=== PATIENT | female | born 1970 | race Two or more races ===

== ENCOUNTER 2019-02-12 23:45 | Emergency (ER) | payer OTHER ==
[2019-02-13 01:07] LABS: ABSOLUTE BASOPHILS # (AUTO) 0.1 10^3/uL (0.0-0.2); ABSOLUTE EOSINOPHILS # (AUTO) 0.4 10^3/uL (0.0-0.6); ABSOLUTE LYMPHOCYTES (AUTO) 1.8 10^3/uL (0.5-4.7); ABSOLUTE MONOCYTES (AUTO) 0.7 10^3/uL (0.1-1.4); ABSOLUTE NEUT (AUTO) 5.1 10^3/uL (1.7-8.2); EOSINOPHILS % (AUTO) 4.4 % (0-6); HEMOGLOBIN 12.1 g/dL (12.0-15.5); LYMPHOCYTES % (AUTO) 22.5 % (13-45); MEAN CORPUSCULAR HEMOGLOBIN 30.2 pg (27.0-33.4); MEAN CORPUSCULAR HGB CONC 33.7 g/dL (32.0-36.0); MEAN CORPUSCULAR VOLUME 90 fl (80-97); PLATELET COUNT 311 10^3/uL (150-450); RED BLOOD COUNT 4.02 10^6/uL (3.72-5.28); RED CELL DISTRIBUTION WIDTH 14.2 % (11.5-14.0); SEGMENTED NEUTROPHILS % (AUTO) 63.1 % (42-78); TOTAL CELLS COUNTED % (AUTO) 100 %; WHITE BLOOD COUNT 8.1 10^3/uL (4.0-10.5)
[2019-02-13 01:26] LABS: ALANINE AMINOTRANSFERASE 59 U/L (9-52); ALBUMIN 3.9 g/dL (3.5-5.0); ALKALINE PHOSPHATASE 101 U/L (38-126); ANION GAP 9 (5-19); ASPARTATE AMINO TRANSFERASE 51 U/L (14-36); BILIRUBIN,DIRECT 0.2 mg/dL (0.0-0.4); BILIRUBIN,TOTAL 0.2 mg/dL (0.2-1.3); BLOOD UREA NITROGEN 18 mg/dL (7-20); CALCIUM 9.7 mg/dL (8.4-10.2); CARBON DIOXIDE 29 mmol/L (22-30); CHLORIDE 103 mmol/L (98-107); GLUCOSE 97 mg/dL (75-110); LIPASE 110.5 U/L (23-300); POTASSIUM 3.7 mmol/L (3.6-5.0); SODIUM 140.6 mmol/L (137-145)
[2019-02-13] MEDS ORDERED: ONDANSETRON 4 MG TAB.RAPDIS PO ONE (01:52)
[2019-02-13] MEDS ORDERED: OXYCODONE-ACETAMINOPHEN 5-325 MG TABLET PO ONE (01:52)
--- NOTE | 2019-02-13 01:53 | ER Document Report ---
ED GI/ - General Chief Complaint: Flank Pain Stated Complaint: RIGHT SIDE PAIN/FEVER Time Seen by Provider: 02/13/19 01:23 Notes: Patient is a 48-year-old female that comes to the emergency department for chief complaint of flank pain on both sides, bilateral intermittent lower abdominal pain, frequency and pain with urination, and today she felt like she was running a fever and having chills. She reports some nausea but denies vomiting. She states earlier she had a mild headache. She denies upper abdominal pain, vomiting, history of kidney stones, history of abdominal surgeries. She denies any daily medications, she states she has been taking Azo. She is Maltese- speaking, has daughter at bedside. TRAVEL OUTSIDE OF THE [place] IN LAST 30 DAYS: No Past Medical History - General Information source: Patient - Social History Smoking Status: Never Smoker Frequency of alcohol use: None Drug Abuse: None Lives with: Family Family History: Reviewed & Not Pertinent - Medical History Medical History: Negative Surgical Hx: Negative - Immunizations Immunizations up to date: Yes Hx Diphtheria, Pertussis, Tetanus Vaccination: Yes Review of Systems - Review of Systems Constitutional: No symptoms reported EENT: No symptoms reported Cardiovascular: No symptoms reported Respiratory: No symptoms reported Gastrointestinal: See HPI Genitourinary: See HPI Female Genitourinary: No symptoms reported Musculoskeletal: No symptoms reported Skin: No symptoms reported Hematologic/Lymphatic: No symptoms reported Neurological/Psychological: No symptoms reported Physical Exam - Vital signs Vitals: Temp Pulse Resp BP Pulse Ox 98.2 F 72 19 120/78 96 02/13/19 00:26 02/13/19 00:26 02/13/19 00:26 02/13/19 00:02/13/19 00:26 - Notes Notes: GENERAL: Alert, interacts well. No acute distress. HEAD: Normocephalic, atraumatic. EYES: Pupils equal, round, and reactive to light. Extraocular movements intact. ENT: Oral mucosa moist, tongue midline. Oropharynx unremarkable. Airway patent. Nares patent, no nasal septal hematoma, TM's intact. NECK: Full range of motion. Supple. Trachea midline. LUNGS: Clear to auscultation bilaterally, no wheezes, rales, or rhonchi. No respiratory distress. HEART: Regular rate and rhythm. No murmur ABDOMEN: Minimal suprapubic tenderness, otherwise unremarkable. No guarding or rebound tenderness. Non-distended. Bowel sounds present in all 4 quadrants. GENITOURINARY: Deferred EXTREMITIES: Moves all 4 extremities spontaneously. No edema, normal radial and dorsalis pedis pulses bilaterally. No cyanosis. BACK: no cervical, thoracic, lumbar midline tenderness. No saddle anesthesia, normal distal neurovascular exam. Mild bilateral CVA tenderness, equal. NEUROLOGICAL: Alert and oriented x3. Normal speech. . PSYCH: Normal affect, normal mood. SKIN: Warm, dry, normal turgor. No rashes or lesions noted. Course - Re-evaluation Re-evalutation: Patient is very well-appearing. She does have some CVA tenderness bilaterally but she does not appear to be in distress. Vital signs are unremarkable. No fever. Abdomen is soft and benign except for minimal suprapubic tenderness. Chemistry unremarkable. CBC unremarkable. Urinalysis does show infection. Culture placed. Discussed with patient again, discussed work-up, treatment opti ons. I do have a low suspicion of ureterolithiasis with infection because patient has had slowly progressive bilateral flank pain, she does not have any severe pain, vomiting, or fever. After discussion decision was made to treat patient with IM Rocephin here, antibiotic's at home, symptom management at home, and return precautions which were discussed in detail. Patient states satisfaction agreement. Evaluation in conversation with patient performed using Martti valuer. - Vital Signs Vital signs: Temp Pulse Resp BP Pulse Ox 98.1 F 71 15 109/69 95 02/13/19 06:09 02/13/19 06:09 02/13/19 06:09 02/13/19 06:09 02/13/19 06:09 - Laboratory Result Diagrams: 02/13/19 01:00 02/13/19 01:00 Laboratory results interpreted by me: 02/13/19 02/13/19 02/13/19 01:00 01:00 03:20 RDW 14.2 H AST 51 H ALT 59 H Urine Blood MODERATE H Ur Leukocyte Esterase MODERATE H Discharge - Discharge Clinical Impression: Flank pain, Dysuria Urinary tract infection Qualifiers: Urinary tract infection type: site unspecified Hematuria presence: without hematuria Qualified Code(s): N39.0 - Urinary tract infection, site not specified Condition: Stable Disposition: HOME, SELF-CARE Additional Instructions: Thomas examen muestra ayden infeccion renal. Learned el antibiotico hasta que se haya neto. Learned el medicamento para el dolor (percocet) y el medicamento para las nauseas (zofran) si es necesario. Vuelve si estas peor: fiebre, vomitos, peor dolor, etc. Prescriptions: Cephalexin Monohydrate [Keflex 500 mg Capsule] 500 mg PO QID #28 capsule Ondansetron [Zofran Odt 4 mg Tablet] 1 - 2 tab PO Q4H PRN #15 tab.rapdis PRN Reason: For Nausea/Vomiting Oxycodone HCl/Acetaminophen [Percocet 5-325 mg Tablet] 1 - 2 tab PO Q4H PRN #12 tablet PRN Reason: Forms: Return to Work
[2019-02-13 04:56] LABS: APPEARANCE,URINE SLIGHTLY-CLOUDY; BILIRUBIN,URINE NEGATIVE (NEGATIVE); COLOR,URINE STRAW; GLUCOSE, URINE NEGATIVE (NEGATIVE); KETONES,URINE NEGATIVE (NEGATIVE); LEUKOCYTE ESTERASE,URINE MODERATE (NEGATIVE); NITRITE,URINE NEGATIVE (NEGATIVE); PROTEIN,URINE NEGATIVE (NEGATIVE); URINE SPECIFIC GRAVITY 1.009; UROBILINOGEN,URINE NEGATIVE mg/dL (<2.0)
[2019-02-13] MEDS ORDERED: LIDOCAINE 1% INJ-PF (10 MG/ML) 30 ML SDV INJ ONE (05:39)
[2019-02-13] MEDS ORDERED: CEFTRIAXONE INJ 1000 MG VIAL IM ONE (05:39)
[2019-02-13 06:15] VITALS: BP 109/69
== END 2019-02-13 06:18 | disposition home or self-care (01) ==
LOC: ER 23:45
DX: N39.0 Urinary tract infection, site not specified (principal); R11.0 Nausea; R51 Headache
CPT/HCPCS: 99284; 96372; 36415; 87086; 83690; 85025; 87088; 80053; 81001; 87186; S0119; J3490; J0696

== ENCOUNTER 2019-02-15 21:57 | Emergency (ER) | payer OTHER ==
[2019-02-15 23:44] LABS: APPEARANCE,URINE CLEAR; BILIRUBIN,URINE NEGATIVE (NEGATIVE); COLOR,URINE COLORLESS; GLUCOSE, URINE NEGATIVE (NEGATIVE); KETONES,URINE NEGATIVE (NEGATIVE); LEUKOCYTE ESTERASE,URINE NEGATIVE (NEGATIVE); NITRITE,URINE NEGATIVE (NEGATIVE); PROTEIN,URINE NEGATIVE (NEGATIVE); URINE SPECIFIC GRAVITY 1.001; UROBILINOGEN,URINE NEGATIVE mg/dL (<2.0)
--- NOTE | 2019-02-16 00:32 | ER Document Report ---
ED Medical Screen (RME) - General Chief Complaint: Flank Pain Stated Complaint: LOWER BACK PAIN Time Seen by Provider: 02/16/19 00:22 Mode of Arrival: Ambulatory Information source: Patient, Friend Notes: Patient is a 48-year-old female comes back to the emergency room after being seen on the ninth of this month for similar presentation of bilateral flank pain with radiation down to the suprapubic area. Patient has been placed on cephalexin for UTI and states she is been taking a regular basis but is not getting any better states a matter fact she is getting worse. We are doing this for interpretation of her friend that is with her. But there is still some lacking communication problems. Patient states she has had surgeries in the belly but she is not sure what 1 of the more. She also states that her last menstrual period was in 2012 but she is never had any menopausal symptoms. Patient also denies having any other medical problems and does not smoke drink or do drugs. TRAVEL OUTSIDE OF THE [place] IN LAST 30 DAYS: No Past Medical History - General Information source: Patient, Friend - Social History Chew tobacco use (# tins/day): No Frequency of alcohol use: None Drug Abuse: None Lives with: Family Family history: Reviewed & Not Pertinent Renal/ Medical History: Denies: Hx Peritoneal Dialysis - Immunizations Immunizations up to date: Yes Hx Diphtheria, Pertussis, Tetanus Vaccination: Yes Review of Systems - Review of Systems Constitutional: No symptoms reported EENT: No symptoms reported Cardiovascular: No symptoms reported Respiratory: No symptoms reported Gastrointestinal: See HPI, Abdominal pain Genitourinary: No symptoms reported Female Genitourinary: No symptoms reported Musculoskeletal: See HPI, Back pain Skin: No symptoms reported Hematologic/Lymphatic: No symptoms reported Neurological/Psychological: No symptoms reported Physical Exam - Vital signs Vitals: Temp Pulse Resp BP Pulse Ox 97.9 F 73 20 133/96 H 99 02/15/19 22:03 02/15/19 22:03 02/15/19 22:03 02/15/19 22:03 02/15/19 22:03 Interpretation: Hypertensive - Notes Notes: PHYSICAL EXAMINATION: GENERAL: Patient is a well-nourished well-developed 48-year-old female who is in no apparent distress on physical exam tonight but who appears to be somewhat moderate amount of discomfort and pain.. NECK: Normal range of motion, supple without lymphadenopathy LUNGS: Breath sounds clear to auscultation bilaterally and equal. No wheezes rales or rhonchi. HEART: Regular rate and rhythm without murmurs ABDOMEN: Examination patient's abdomen shows she has bowel sounds in all 4 quads. She is tender in the suprapubic area to palpation. She also has moderate tenderness to percussion on bilateral flanks. Female : deferred Musculoskeletal: Normal range of motion, no pitting or edema. No cyanosis. NEUROLOGICAL: Normal speech, normal gait. Normal sensory, motor exams PSYCH: Normal mood, normal affect. SKIN: Warm, Dry, normal turgor, no rashes or lesions noted. Course - Re-evaluation Re-evalutation: 02/16/19 00:31 I have greeted and performed a rapid initial assessment of this patient. A comprehensive ED assessment and evaluation of the patient, analysis of test results and completion of the medical decision making process will be conducted by additional ED providers. Dictation of this chart was performed using voice recognition software; therefore, there may be some unintended grammatical errors. - Vital Signs Vital signs: Temp Pulse Resp BP Pulse Ox 97.9 F 73 20 133/96 H 99 02/15/19 22:03 02/15/19 22:03 02/15/19 22:03 02/15/19 22:03 02/15/19 22:03 - Laboratory Laboratory results interpreted by me: 02/15/19 22:50 Urine Blood SMALL H
[2019-02-16 00:49] LABS: ABSOLUTE BASOPHILS # (AUTO) 0.1 10^3/uL (0.0-0.2); ABSOLUTE EOSINOPHILS # (AUTO) 0.2 10^3/uL (0.0-0.6); ABSOLUTE LYMPHOCYTES (AUTO) 1.7 10^3/uL (0.5-4.7); ABSOLUTE MONOCYTES (AUTO) 0.7 10^3/uL (0.1-1.4); ABSOLUTE NEUT (AUTO) 7.6 10^3/uL (1.7-8.2); EOSINOPHILS % (AUTO) 2.4 % (0-6); HEMATOCRIT 41.3 % (36.0-47.0); HEMOGLOBIN 13.9 g/dL (12.0-15.5); LYMPHOCYTES % (AUTO) 16.4 % (13-45); MEAN CORPUSCULAR HEMOGLOBIN 30.1 pg (27.0-33.4); MEAN CORPUSCULAR HGB CONC 33.7 g/dL (32.0-36.0); MEAN CORPUSCULAR VOLUME 89 fl (80-97); MONOCYTES % (AUTO) 6.4 % (3-13); PLATELET COUNT 436 10^3/uL (150-450); RED BLOOD COUNT 4.62 10^6/uL (3.72-5.28); RED CELL DISTRIBUTION WIDTH 14.1 % (11.5-14.0); SEGMENTED NEUTROPHILS % (AUTO) 73.8 % (42-78); TOTAL CELLS COUNTED % (AUTO) 100 %; WHITE BLOOD COUNT 10.3 10^3/uL (4.0-10.5)
[2019-02-16 01:07] LABS: ALANINE AMINOTRANSFERASE 126 U/L (9-52); ALBUMIN 4.4 g/dL (3.5-5.0); ALKALINE PHOSPHATASE 179 U/L (38-126); ANION GAP 11 (5-19); ASPARTATE AMINO TRANSFERASE 94 U/L (14-36); BILIRUBIN,DIRECT 0.2 mg/dL (0.0-0.4); BILIRUBIN,TOTAL 0.3 mg/dL (0.2-1.3); BLOOD UREA NITROGEN 18 mg/dL (7-20); CALCIUM 9.9 mg/dL (8.4-10.2); CARBON DIOXIDE 27 mmol/L (22-30); CHLORIDE 104 mmol/L (98-107); GLUCOSE 100 mg/dL (75-110); TOTAL PROTEIN 8.1 g/dL (6.3-8.2)
--- NOTE | 2019-02-16 01:19 | RADIOLOGY REPORT (SQ) ---
EXAM DESCRIPTION: CT ABDOMEN PELVIS WITHOUT IV CONTRAST COMPLETED DATE/TME: 02/16/2019 00:28 CLINICAL HISTORY: 48 years, Female, Stone study COMPARISON: None. TECHNIQUE: Axial CT images of the abdomen and pelvis were obtained without contrast. Sagittal and coronal reformats were performed. DLP 344 Images stored on PACS. All CT scanners at this facility use dose modulation, iterative reconstruction, and/or weight based dosing when appropriate to reduce radiation dose to as low as reasonably achievable (ALARA). [facility]: Dose Right [facility]: CareDose [facility]: Dose Right [facility]: Teradose 4D [facility]: Smart [facility] LIMITATIONS: None. FINDINGS: Lung bases are clear. There is a 2.7 x 2.0 cm cyst within the left hepatic lobe. The gallbladder is not uniquely identified and may be surgically absent. The pancreas, spleen, and adrenal glands are unremarkable. There is no evidence of urolithiasis or hydronephrosis bilaterally. There is no intraperitoneal free air or fluid. There is no lymphadenopathy. The stomach appears unremarkable. There is mild distention of the fluid-filled small bowel. The appendix is normal. Fluid is noted within the colon. The uterus, adnexa, and urinary bladder are unremarkable. There are no lytic or blastic bone lesions. IMPRESSION: Mild distention of the fluid-filled small bowel and colon, likely related to an enterocolitis or diarrhea. No evidence of urolithiasis or hydronephrosis. TECHNICAL DOCUMENTATION: Quality ID # [id number]: Final reports with documentation of one or more dose reduction techniques (e.g., Automated exposure control, adjustment of the mA and/or kV according to patient size, use of iterative reconstruction technique) copyright 2011 [employer]- All Rights Reserved
[2019-02-16] MEDS ORDERED: KETOROLAC TROMETHAMINE 60 MG/2 ML SDV IM ONE (02:25)
[2019-02-16] MEDS ORDERED: DICYCLOMINE HCL INJ 20 MG/2 ML AMPULE IM ONE (02:26)
--- NOTE | 2019-02-16 02:40 | ER Document Report ---
ED General - General Chief Complaint: Flank Pain Stated Complaint: LOWER BACK PAIN Time Seen by Provider: 02/16/19 00:22 Mode of Arrival: Ambulatory Notes: Patient is a 48-year-old female without chronic medical problems, prior surgical history of a cholecystectomy and laparoscopy who presents complaining of ongoing lower abdominal discomfort and bilateral low back pain. Patient was seen in the emergency department 3 days ago, had bilateral flank tenderness at that time and was diagnosed with pyelonephritis. States that since taking antibiotics she has gotten worse not better although is no longer complaining of any dysuria. She describes the pain as being a throbbing, cramping, severe pain to her lower abd omen radiating into her low back. Nothing seems to improve or worsen her symptoms. She denies any history of similar symptoms in the past. She has not seen her primary care physician regarding today's concerns. She has had nausea but no vomiting and has had diarrhea. No fever. The history and physical exam was obtained by the provider using [employer] Sorbian. A formal hospital flocculator operator was offered to the patient and any family at the bedside at the beginning of the encounter and was declined. TRAVEL OUTSIDE OF THE [place] IN LAST 30 DAYS: No Past Medical History - General Information source: Patient, Friend - Social History Smoking Status: Never Smoker Chew tobacco use (# tins/day): No Frequency of alcohol use: None Drug Abuse: None Lives with: Family Family History: Reviewed & Not Pertinent Patient has suicidal ideation: No Patient has homicidal ideation: No Renal/ Medical History: Denies: Hx Peritoneal Dialysis - Immunizations Immunizations up to date: Yes Hx Diphtheria, Pertussis, Tetanus Vaccination: Yes Review of Systems - Review of Systems Notes: Constitutional: Negative for fever. HENT: Negative for sore throat. Eyes: Negative for visual changes. Cardiovascular: Negative for chest pain. Respiratory: Negative for shortness of breath. Gastrointestinal: Positive for lower abdominal pain, nausea and diarrhea Genitourinary: Negative for dysuria. Musculoskeletal: Negative for back pain. Skin: Negative for rash. Neurological: Negative for headaches, weakness or numbness. 10 point ROS negative except as marked above and in HPI. Physical Exam - Vital signs Vitals: Temp Pulse Resp BP Pulse Ox 97.9 F 73 20 133/96 H 99 02/15/19 22:03 02/15/19 22:03 02/15/19 22:03 02/15/19 22:03 02/15/19 22:03 Interpretation: Normal Notes: PHYSICAL EXAMINATION: GENERAL: Well-appearing, well-nourished and in no acute distress. HEAD: Atraumatic, normocephalic. EYES: Pupils equal round and reactive to light, extraocular movements intact, sclera anicteric, conjunctiva are normal. ENT: nares patent, oropharynx clear without exudates. Moist mucous membranes. NECK: Normal range of motion, supple without lymphadenopathy LUNGS: Breath sounds clear to auscultation bilaterally and equal. No wheezes rales or rhonchi. HEART: Regular rate and rhythm without murmurs ABDOMEN: Soft, nontender, normoactive bowel sounds. No guarding, no rebound. No masses appreciated. EXTREMITIES: Normal range of motion, no pitting or edema. No cyanosis. NEUROLOGICAL: No focal neurological deficits. Moves all extremities spontaneously and on command. PSYCH: Normal mood, normal affect. SKIN: Warm, Dry, normal turgor, no rashes or lesions noted. Course - Re-evaluation Re-evalutation: 02/16/19 04:02 Patient presents with lower abdominal discomfort and low back pain by history although on exam has no significant abdominal tenderness at all on palpation. No flank tenderness. In triage labs were ordered which are broadly unremarkable. A CT scan of the abdomen pelvis seems to show some inflammation of the colon with some intestinal distention. This appears to be most consistent with an enteritis or colitis secondary to either viral infection, bacterial etiology or possibly secondary to the recent usage of antibiotics. The patient's urinalysis today does show that she has had complete resolution of the previous infection and I have advised her to discontinue the antibiotics at this time given that this could be contributing to her abdominal cramping, diarrhea and inflammation of the colon. At this point I would withhold further antibiotics as patient has not been having pronounced diarrhea, fever or tor tochezia. Bacterial colitis seems less likely given the absence of pronounced diarrhea and the above symptoms. I have started the patient on Levsin, have provided Bentyl here in the emergency department with improvement of the patient's discomfort. At this time will discharge with return precautions and follow-up recommendations. Verbal discharge instructions given a the bedside and opportunity for questions given. Medication warnings reviewed. Patient is in agreement with this plan and has verbalized understanding of return precautions and the need for primary care follow-up in the next 24-72 hours. 02/16/19 04:03 - Vital Signs Vital signs: Temp Pulse Resp BP Pulse Ox 97.3 F 64 16 121/67 98 02/16/19 02:57 02/16/19 02:57 02/16/19 02:57 02/16/19 02:57 02/16/19 02:57 - Laboratory Result Diagrams: 02/16/19 00:40 02/16/19 00:40 Laboratory results interpreted by me: 02/15/19 02/16/19 02/16/19 22:50 00:40 00:40 RDW 14.1 H AST 94 H ALT 126 H Alkaline Phosphatase 179 H Urine Blood SMALL H Discharge - Discharge Clinical Impression: Lower abdominal pain, Enteritis Condition: Good Disposition: HOME, SELF-CARE Additional Instructions: Your CT scan seems to suggest inflammation of your intestines either due to a viral illness for due to the antibiotics. Your urinalysis today does not suggest any ongoing infection and I do asked that you stop the cephalexin that you are currently taking. Take the Levsin that is been prescribed as needed for abdominal cramping and pain. Continue to drink plenty of fluids. Return to the emergency department immediately if you have fever of greater than 101 F, persistent vomiting, worsening of your pain, or any other symptoms that are worrisome to you. Prescriptions: Hyoscyamine Sulfate [Levsin 0.125 Tablet] 0.125 mg PO TID PRN #30 tablet PRN Reason: Forms: Parent Work Note, Return to Work
[2019-02-16 02:58] VITALS: BP 121/67
== END 2019-02-16 02:57 | disposition home or self-care (01) ==
LOC: ER 21:57
DX: K52.9 Noninfective gastroenteritis and colitis, unspecified (principal); R10.30 Lower abdominal pain, unspecified; M54.5 Low back pain; R11.0 Nausea; Z90.49 Acquired absence of other specified parts of digestive tract
CPT/HCPCS: 99284; 96372; 36415; 85025; 81025; 80053; 81001; 74176; J0500; J1885